=== PATIENT | male | born 1960 | race Caucasian/White ===

== ENCOUNTER 2017-05-11 20:51 | Emergency (ER) | payer SELFPAY ==
[~2017-05-11] VITALS: Ht 170.2 cm; Wt 95.5 kg
[2017-05-11 20:58] VITALS: Ht 170.2 cm; Wt 95.5 kg
--- NOTE | 2017-05-12 01:35 | ERD ---
ER Documentation Chief Complaint Date/Time DATE: 05/12/17 TIME: 01:32 Chief Complaint BIB SELF, CC: RIGHT EYE PAIN, INFECTION UNDER EYE LID HPI This a 56 year-old male who presents to the emergency department complaining of an infection in his eyelid for the past 2 weeks. Denies any blurred vision, vision changes, headache or dizziness. States that the area is also itchy. He has not tried any medication. ROS All systems reviewed and are negative except as per history of present illness. Medications Home Meds Active Scripts Sulfamethoxazole/Trimethoprim* (Bactrim Ds* Tablet) 1 Each Tablet, 1 TAB PO BID for 7 Days, #14 TAB Prov:ELYSSA GORDON PA-C 05/12/17 Erythromycin (Erythromycin Opth) 3.5 Gm Oint..gm., 1 APPLIC RIGHT EYE QID for 7 Days, #1 Prov:ELYSSA GORDON PA-C 05/12/17 PMhx/Soc Medical and Surgical Hx: pt denies Medical Hx, pt denies Surgical Hx History of Surgery: No Anesthesia Reaction: No Hx Neurological Disorder: No Hx Respiratory Disorders: No Hx Cardiac Disorders: No Hx Psychiatric Problems: No Hx Miscellaneous Medical Probl: No Hx Alcohol Use: Yes (SOCIAL) Hx Substance Use: No Hx Tobacco Use: No Smoking Status: Former smoker Physical Exam Vitals Vital Signs Date Time Temp Pulse Resp B/P Pulse Ox O2 Delivery O2 Flow Rate FiO2 05/11/17 20:58 97.9 72 18 144/79 100 Physical Exam Const: NAD Head: Atraumatic Eyes: Normal conjunctivae. Right eye with evidence of chalazion lower eyelid. ENT: Normal External Ears, Nose and Mouth. Neck: Full range of motion..~ No meningismus. Resp: Clear to auscultation bilaterally Cardio: Regular rate and rhythm, no murmurs Skin: No petechiae or rashes Neur: Awake and alert Psych: Normal Mood and Affect Procedures/MDM This is a 56 -year-old male who presents the emergency department today complaining of signs and symptoms most consistent with a chalazion. Patient did state the area was itchy. Patient is afebrile and otherwise well- appearing. He denies any blurred vision or vision changes. I did obtain a visual acuity Right eye 20/20 left eye 20/20 bilateral 20/20 Patient will be given a prescription for erythromycin and Bactrim for possible staph infection. Patient was also given referral information for [facility] and I do have low suspicion for eye emergency, retinal detachment, acute narrow angle glaucoma, hyphema, globe rupture, corneal abrasion, foreign body At this time the patient is stable for discharge and outpatient management. Patient should follow up with their PCP in the next 1-2 days. They may return to the emergency department sooner for any persistent or worsening of symptoms. Patient understood and agreed with the plan. Departure Diagnosis: Primary Impression: Eye problem Condition: ELYSSA Guaman PA-C May 12, 2017 01:35
[2017-05-12] MEDS ORDERED: ERYT1OIN6 RIGHT EYE (01:37)
[2017-05-12] MEDS ORDERED: SULF1TAB31 PO (01:37)
[2017-05-12 02:08] VITALS: BP 167/93; PULSE 52; RESP 20; TEMP 98.2
== END 2017-05-12 01:50 | disposition home or self-care (01) ==
LOC: FTE 20:51
DX: H00.12 Chalazion right lower eyelid (principal); Z87.891 Personal history of nicotine dependence
CPT/HCPCS: 99284